=== PATIENT | female | born 1950 | race Caucasian/White ===

== ENCOUNTER 2024-12-11 09:54 | Day surgery (SDC) | payer MEDICARE, SELFPAY ==
--- OUTSIDE RECORDS SUMMARY | 2024-11-18 11:06 | XMS_ITS | Patient Health Record ---
Author Organization [facility] Address [address] [place] [address] Care Team Providers Care Pool Nurse Name Role Phone Silver Manzano MD Primary Care Provider Johnathan Arechiga [phone] Reason For Referral No Information Plan Of Treatment No Information Insurance Providers Payer Name Payer Address Payer Phone Subscriber Number Group Number Insured Name Patient Relationship to Insured Coverage Start Date Coverage End Date [facility] [address] [place] [phone] [id number] [address] ELI Self - patient is the insured
[2024-12-05 16:42] VITALS: BMI 25.4
[2024-12-09 10:12] VITALS: BMI 26.3
--- NOTE | 2024-12-10 12:20 | HO.ANESPROP2 ---
Documented by User: Kadi Kaye NP 12/10/24 12:28 HPI - Anesthesia Eval Consult details Narrative: 74yo F for Bilateral Medial Rectus Eye Muscle Recession Medically optimized per PCP Follows [facility] cardiology for atypical CP, CAD (cath 2020 with 50% LAD lesion). Last office visit 02/2024 with 1 year f/u [facility] Past Medical History Medical History HTN (hypertension) History of postoperative nausea SOB (shortness of breath) Positive cardiac stress test Panic disorder Palpitations Macular degeneration Left shoulder pain Osteoarthritis Generalized joint pain Eczema Difficulty sleeping Coronary artery disease Constipation Glucose intolerance Glaucoma GERD (gastroesophageal reflux disease) Chronic kidney disease, stage 3a Anxiety Family History Family History Mother Slow to wake up after anesthesia Surgical History Surgical History History of esophagogastroduodenoscopy (EGD) History of pubovaginal sling Hx of spinal surgery Hx of cardiac catheterization (~2019) Hx of colonoscopy Social History Social History Household Members: Spouse Housing: House Are you a primary medical care administrator to a significant other at home: No Do you presently have visiting nurse or other home services: No Patient Tobacco Use Status: Never used Tobacco Use of substances other than those prescribed or required for medical reasons: No Have you been hit, kicked, punched, or otherwise hurt by someone within the past year? If so, by whom?: No Are you DNR?: No Advance Directives: No (will bring dos) Advance Directives Information Provided: Yes Advance Directives on File: No Poor oral hygiene: No (temporary crown left lower molar) Meds Allergies Allergy/AdvReac Type Severity Reaction Status Date / Time codeine (CODEINE) Allergy Severe Anaphylaxis Verified 12/09/24 10:11 doxycycline (DOXYCYCLINE) AdvReac Severe Diarrhea, Verified 12/09/24 10:11 nausea Darvocet Allergy Severe anaphylaxis Uncoded 12/09/24 10:11 Home Medications ?Medication ?Instructions ?Recorded ?Confirmed ?Last Taken ?Type amlodipine 5 mg tablet 5 mg PO BEDTIME 12/05/24 12/09/24 Unknown History aspirin 81 mg tablet 81 mg PO DAILY 12/05/24 12/05/24 Unknown History atenolol 100 mg tablet 100 mg PO DAILY 12/05/24 12/05/24 Unknown History atorvastatin 40 mg tablet 40 mg PO DAILY 12/05/24 12/05/24 Unknown History cholecalciferol (vitamin D3) 25 25 mcg PO DAILY 12/05/24 12/05/24 Unknown History mcg (1,000 unit) capsule (Vitamin D3) esomeprazole magnesium 20 mg 20 mg PO BID 12/05/24 12/05/24 Unknown History capsule,delayed release (Nexium 24HR) ezetimibe 10 mg tablet 10 mg PO DAILY 12/05/24 12/05/24 Unknown History fluticasone propionate 50 1 spray intranasal BID 12/05/24 12/05/24 Unknown History mcg/actuation nasal spray,suspension isosorbide dinitrate 5 mg tablet 5 mg PO BID 12/05/24 12/05/24 Unknown History lorazepam 1 mg tablet 1 mg PO BEDTIME PRN Anxiety 12/05/24 12/09/24 Unknown History nitroglycerin 0.4 mg sublingual 0.4 mg sublingual Q5M PRN Chest 12/05/24 12/05/24 Unknown History tablet Pain venlafaxine 150 mg 150 mg PO DAILY 12/05/24 12/11/24 12/11/24 08:00 History capsule,extended release 24 hr vitamin A PO DAILY 12/05/24 Unknown History coQ10 (ubiquinol) 100 mg capsule 100 mg PO BID 12/09/24 12/09/24 Unknown History vit C 250 mg-vit E 90 mg-zinc 40 PO 12/09/24 Unknown History mg-copper 1 [id number] capsule (PreserVision AREDS-2) zinc 50 mg capsule 50 mg PO DAILY 12/09/24 12/09/24 Unknown History Exam Height,Weight and Vital Signs: Height 5 ft 4 in Weight 69.4 kg Pertinent Lab Results Pertinent Lab Results: Cardiology Labs WBC: 4.8 x10E3/uL (01/17/24) RBC: 4.81 (01/17/24) Hgb: 14.5 g/dL (01/17/24) Hct: 44.4 % (01/17/24) MCV: 92 fL (01/17/24) MCH: 30.1 pg (01/17/24) MCHC: 32.7 g/dL (01/17/24) Platelet Count: 224 x10E3/uL (01/17/24) RDW-SD: 41.4 femtoliters (06/27/23) Nucleated RBC (Automated): 0 #/100 WBC'S (06/27/23) Sodium:?145 mmol/L?High (01/17/24) Potassium: 4.8 mmol/L (01/17/24) Chloride:?109 mmol/L?High (01/17/24) Bicarbonate Level: 22 mmol/L (01/17/24) Glucose Level:?124 mg/dL?High (01/17/24) BUN: 17 mg/dL (06/27/23) BUN: 15 mg/dL (01/17/24) Creatinine-Blood: 0.89 mg/dL (01/17/24) Calcium: 9.4 mg/dL (01/17/24) Protein, Total: 6.4 g/dL (01/17/24) Albumin: 4 g/dL (01/17/24) Alkaline Phosphatase: 103 IU/L (01/17/24) AST (SGOT): 22 IU/L (01/17/24) ALT (SGPT): 13 IU/L (01/17/24) Bilirubin, Total: 0.5 mg/dL (01/17/24) Cholesterol: 138 mg/dL (01/17/24) Triglycerides: 104 mg/dL (01/17/24) HDL Cholesterol: 55 mg/dL (01/17/24) LDL Cholesterol: 76 mg/dL (06/27/23) Non HDL Cholesterol: 83 mg/dL (01/17/24) LDL Chol Calc (NIH): 64 mg/dL (01/17/24) TSH: 2.01 uIU/mL (01/17/24) Free T4: 1.15 ng/dL (01/17/24) Narrative Narrative: EKG ECGECG 12-Lead * Preliminary * ? 12:47:39 Ventricular Rate: 65 BPM Atrial Rate: 65 BPM P-R Interval: 168 ms QRS Duration: 82 ms Q-T Interval: 414 ms QTC Calculation(Bazett): 430 ms R [place]: -10 degrees T [place]: 14 degrees Normal sinus rhythm Normal ECG When compared with ECG of 11-MAR-2022 13:37, No significant change was found EchoEchocardiogram - Complete ? 14:29:38 Summary Normal LV systolic function (EF 55-65%). Normal LV diastolic function. Normal LV size. Normal LV wall thickness. Normal RV systolic function. Normal RV size. No significant valvular abnormalities. Comparison Comparison is made to the study of April 04, 2012. There is no significant change. Cardiac cath 2020 Conclusions Interventional Summary Normal LV end-diastolic pressure. There is significant (> 50%) one vessel obstructive coronary disease. FFR evaluation of the LAD coronary artery was 0.86 , which is consistent with a non-hemodynamically significant lesion. Successful hemostasis of the right radial artery using a radial compression device . Interventional Recommendations Aggressive primary risk factor modification according to ATP III guidelines. f/u cardiology with Dr. Espinal Documented by User: Brittany Anthony MD 12/11/24 12:27 PMFSH Past Medical History Medical History HTN (hypertension) History of postoperative nausea SOB (shortness of breath) Positive cardiac stress test Panic disorder Palpitations Macular degeneration Left shoulder pain Osteoarthritis Generalized joint pain Eczema Difficulty sleeping Coronary artery disease Constipation Glucose intolerance Glaucoma GERD (gastroesophageal reflux disease) Chronic kidney disease, stage 3a Anxiety Family History Family History Mother Slow to wake up after anesthesia Surgical History Surgical History History of esophagogastroduodenoscopy (EGD) History of pubovaginal sling Hx of spinal surgery Hx of cardiac catheterization (~2019) Hx of colonoscopy History of Problems with Anesthesia: No Social History Social History Household Members: Spouse Housing: House Are you a primary medical care administrator to a significant other at home: No Do you presently have visiting nurse or other home services: No Patient Tobacco Use Status: Never used Tobacco Use of substances other than those prescribed or required for medical reasons: No Have you been hit, kicked, punched, or otherwise hurt by someone within the past year? If so, by whom?: No Are you DNR?: No Advance Directives: No (will bring dos) Advance Directives Information Provided: Yes Advance Directives on File: No Poor oral hygiene: No (temporary crown left lower molar) Meds Allergies Allergy/AdvReac Type Severity Reaction Status Date / Time codeine (CODEINE) Allergy Severe Anaphylaxis Verified 12/09/24 10:11 doxycycline (DOXYCYCLINE) AdvReac Severe Diarrhea, Verified 12/09/24 10:11 nausea Darvocet Allergy Severe anaphylaxis Uncoded 12/09/24 10:11 Home Medications ?Medication ?Instructions ?Recorded ?Confirmed ?Last Taken ?Type amlodipine 5 mg tablet 5 mg PO BEDTIME 12/05/24 12/09/24 Unknown History aspirin 81 mg tablet 81 mg PO DAILY 12/05/24 12/05/24 Unknown History atenolol 100 mg tablet 100 mg PO DAILY 12/05/24 12/05/24 Unknown History atorvastatin 40 mg tablet 40 mg PO DAILY 12/05/24 12/05/24 Unknown History cholecalciferol (vitamin D3) 25 25 mcg PO DAILY 12/05/24 12/05/24 Unknown History mcg (1,000 unit) capsule (Vitamin D3) esomeprazole magnesium 20 mg 20 mg PO BID 12/05/24 12/05/24 Unknown History capsule,delayed release (Nexium 24HR) ezetimibe 10 mg tablet 10 mg PO DAILY 12/05/24 12/05/24 Unknown History fluticasone propionate 50 1 spray intranasal BID 12/05/24 12/05/24 Unknown History mcg/actuation nasal spray,suspension isosorbide dinitrate 5 mg tablet 5 mg PO BID 12/05/24 12/05/24 Unknown History lorazepam 1 mg tablet 1 mg PO BEDTIME PRN Anxiety 12/05/24 12/09/24 Unknown History nitroglycerin 0.4 mg sublingual 0.4 mg sublingual Q5M PRN Chest 12/05/24 12/05/24 Unknown History tablet Pain venlafaxine 150 mg 150 mg PO DAILY 12/05/24 12/11/24 12/11/24 08:00 History capsule,extended release 24 hr vitamin A PO DAILY 12/05/24 Unknown History coQ10 (ubiquinol) 100 mg capsule 100 mg PO BID 12/09/24 12/09/24 Unknown History vit C 250 mg-vit E 90 mg-zinc 40 PO 12/09/24 Unknown History mg-copper 1 [id number]-zhkavc capsule (PreserVision AREDS-2) zinc 50 mg capsule 50 mg PO DAILY 12/09/24 12/09/24 Unknown History Exam Airway Mallampati Class: II TM Dist: >3cm Neck ROM: Full Loose/Missing/Broken Teeth: No Heart: RRR Lungs: CTA Assessment and Plan Assessment Anesthesia Assessment: Anesthesia Plan Discussed and Chart Reviewed Final Anesthetic Review History of Problems with Anesthesia: No NPO: Yes ASA Class: III Final Preanesthetic Review: Meds/Allgs Chart Reviewed, Consent Obtained/Reviewed and Anes Risks/Benef Reviewed Patient Risk: Intermediate Procedure Risk: Low Anesthetic Plan Anesthetic Plan: GA Disposition: Standard PACU
[2024-12-11] VITALS (7 sets, daily range): BP systolic 94–115; BP diastolic 58–78; PULSE 65–74; RESP 16–19; TEMP 36.2–36.9; O2SAT 95–98
[2024-12-11] MEDS: Lactated Ringers 1,000 ML 100 ML IVCONT (10:30)
--- NOTE | 2024-12-11 14:28 | HO.OPHTHAL ---
Ophthalmology Operative Note Date of Service: 12/11/24 Narrative: Diagnosis esotropia postoperative diagnosis same procedure bilateral medial rectus recessions of [address] Moe. Anesthesia general. Complications none. The patient was brought to the operative room placed under general anesthesia. Eyes were prepped and draped in the usual sterile ophthalmic fashion. A lid speculum was placed in the right eye and a peritomy was created around the medial rectus. The muscle was hooked and secured with a double-armed Vicryl suture. It was disinserted from the globe and reattached to a position 4.5 mm behind the original insertion. Conjunctiva was closed with interrupted Vicryl sutures. Identical procedure was then performed of the left eye. The patient was then awoken from general anesthesia and discharged to postoperative recovery in good condition.
== END 2024-12-11 14:36 | disposition home or self-care (01) ==
PROVIDERS: PCP Internal Medicine; Visit Provider Ophthalmology
PROC: (CPT 67311; principal; 2024-12-11 12:00)
DX: H53.2 Diplopia (principal); H50.00 Unspecified esotropia; I25.10 Atherosclerotic heart disease of native coronary artery without angina pectoris; I12.9 Hypertensive chronic kidney disease with stage 1 through stage 4 chronic kidney disease, or unspecified chronic kidney disease; N18.31 Chronic kidney disease, stage 3a; E78.00 Pure hypercholesterolemia, unspecified; R73.09 Other abnormal glucose; K21.9 Gastro-esophageal reflux disease without esophagitis; Z79.82 Long term (current) use of aspirin; Z79.899 Other long term (current) drug therapy; Z98.890 Other specified postprocedural states
CPT/HCPCS: 67311; J0131; J1100; J1596; J2003; J2405; J2704; J3010